=== PATIENT | female | born 1960 | race Hispanic/Latino ===

== ENCOUNTER 2023-12-17 22:28 | Emergency (ER) | payer SELFPAY ==
[2023-12-17 23:16] LABS: Influenza A by NAA Not Detected (NotDetected); Influenza B by NAA Not Detected (NotDetected); SARS-CoV-2 NAA Rapid Test Not Detected (NotDetected)
== END 2023-12-18 00:29 | disposition home or self-care (01) ==
LOC: ERS 22:28
DX: B34.9 Viral infection, unspecified (principal)
CPT/HCPCS: 99283